=== PATIENT | female | born 1995 | race Caucasian/White ===

== ENCOUNTER 2018-02-02 23:44 | Inpatient (IN) | payer BC, MEDICAID ==
[~2018-02-02] VITALS: Ht 152.4 cm; Wt 82.7 kg
[2018-02-03] VITALS (43 sets, daily range): BP systolic 93–167; BP diastolic 52–89; PULSE 72–153; TEMP 97.8–100.2
[2018-02-03] MEDS ORDERED: PRENATAL1 TA7 PO (00:17)
[2018-02-03 01:04] LABS: BASO # 0.1 (0.0-0.2); BASO % 0.4 % (0.0-2.0); EOS # 0.1 (0.0-0.7); EOS % 0.8 % (0-4.0); GRAN # 11.8 (1.4-6.5); GRAN % 72.6 % (42.2-75.2); LYMPH # 2.6 (1.2-3.4); LYMPH % 16.2 % (20.0-51.0); MEAN CELL VOLUME 84 fl (80.0-100.0); MEAN CORPUSCULAR HEMOGLOBIN 29 pg (27.0-31.0); MEAN CORPUSCULAR HGB CONC 35 g/dl (33.0-37.0); MEAN PLATELET VOLUME 10.5 fl (7.4-10.4); MONO # 1.5 (0.1-0.6); MONO % 9.1 % (1.7-9.3); PLATELET COUNT 248 K/mm3 (130-400); RED BLOOD COUNT 4.08 M/mm3 (4.10-5.30); REDCELL DISTRIBUTION WIDTH-CV 12.9 % (11.5-14.5)
[2018-02-03 01:08] LABS: HEMATOCRIT 34.4 % (37.0-47.0)
[2018-02-04] VITALS: BP 95/50; PULSE 82; TEMP 97.8
[2018-02-04 07:50] VITALS: BP 86/46; PULSE 81; TEMP 98.3
[2018-02-04 12:30] VITALS: BP 101/55; PULSE 81; TEMP 97.7
[2018-02-04 16:25] VITALS: BP 102/52; PULSE 82; TEMP 98
[2018-02-04 20:20] VITALS: BP 107/62; PULSE 96; TEMP 98.3
[2018-02-05 08:00] VITALS: BP 114/58; PULSE 85; TEMP 98.3
[2018-02-05] MEDS ORDERED: IBU800 M1 PO (10:54)
== END 2018-02-05 14:20 | disposition home or self-care (01) | DRG 775 ==
LOC: LDRO 23:44 → LDR 02-03 00:11 → OB 02-03 14:30
PROVIDERS: Obstetrics & Gynecology
PROC: 10E0XZZ Delivery of Products of Conception, External Approach (ICD-10-PCS; principal; 2018-02-03)
DX: O42.013 Preterm premature rupture of membranes, onset of labor within 24 hours of rupture, third trimester (principal); O36.0930 Maternal care for other rhesus isoimmunization, third trimester, not applicable or unspecified; K51.20 Ulcerative (chronic) proctitis without complications; Z3A.36 36 weeks gestation of pregnancy; Z37.0 Single live birth
CPT/HCPCS: J2210; J2590; J2791; J7120